=== PATIENT | female | born 1990 | race Caucasian/White ===

== ENCOUNTER 2017-10-25 23:05 | Emergency (ER) | payer OTHER ==
[~2017-10-25] VITALS: Ht 162.6 cm; Wt 63.5 kg
[2017-10-26] MEDS ORDERED: BUTALB-APAP-CA1 EACH PO (00:46)
[2017-10-26 01:02] VITALS: BP 107/67
== END 2017-10-26 01:02 | disposition home or self-care (01) ==
LOC: ER 23:05
DX: G43.909 Migraine, unspecified, not intractable, without status migrainosus (principal); M62.838 Other muscle spasm; R42 Dizziness and giddiness